=== PATIENT | female | born 1975 | race Caucasian/White ===

== ENCOUNTER 2020-03-18 08:55 | Emergency (ER) | payer OTHER ==
[~2020-03-18] VITALS: Ht 170.2 cm; Wt 81.6 kg
[2020-03-18 09:04] VITALS: Ht 170.2 cm; Wt 81.6 kg
[2020-03-18 14:00] VITALS: BP 123/85
== END 2020-03-18 14:00 | disposition home or self-care (01) ==
LOC: ED 08:55
DX: S51.011A Laceration without foreign body of right elbow, initial encounter (principal); S16.1XXA Strain of muscle, fascia and tendon at neck level, initial encounter; S29.012A Strain of muscle and tendon of back wall of thorax, initial encounter; S09.8XXA Other specified injuries of head, initial encounter; F17.210 Nicotine dependence, cigarettes, uncomplicated; W22.8XXA Striking against or struck by other objects, initial encounter; Y93.89 Activity, other specified; Y92.89 Other specified places as the place of occurrence of the external cause; Y99.8 Other external cause status
CPT/HCPCS: 99406; J2001; Q0092